=== PATIENT | female | born 1965 | race Caucasian/White ===

== ENCOUNTER 2020-03-19 | Outpatient (REF) | payer MEDICAID, SELFPAY ==
[2020-03-20 11:03] LABS: Glucose Urine UA NEG (NEG); Leukocyte Esterase Urine NEG (NEG); Nitrite Urine NEG (NEG); Specific Gravity - Urine <= 1.005 (1.005-1.025); Urine Blood TRACE (NEG); Urine Ketones NEG (NEG); Urine Protein NEG (NEG-TRACE)
[2020-03-20 11:05] LABS: Appearance Urine CLEAR; Color Urine YELLOW
[2020-03-20 11:27] LABS: Bacteria Urine TRACE /LPF; RBC Urine 0-2 /HPF (0); Squamous Epithelial Cell Urine TRACE /LPF; WBC Urine 0-2 /HPF (0-4)
== END 2020-03-19 00:01 | disposition home or self-care (01) ==
LOC: HO.LNP
PROVIDERS: Visit Provider Hospitalist
DX: Z00.00 Encounter for general adult medical examination without abnormal findings (principal); Z13.9 Encounter for screening, unspecified
CPT/HCPCS: 81001; 81003

== ENCOUNTER 2020-04-01 10:37 | Outpatient (REF) | payer OTHER, SELFPAY ==
[2020-04-01 13:32] LABS: Hematocrit 46.8 % (37-47); Hemoglobin 14.5 g/dl (12.0-16.0); Mean Corpuscular Hemoglobin 27.5 pg (27.0-33.0); Mean Corpuscular Volume 88.8 fL (80-98); Mean Platelet Volume 10.5 fL (9.4-12.3); Platelet Count 337 X10*3/uL (160-400); Red Blood Count 5.27 X10*6/uL (4.20-5.50); Red Cell Distribution Width 15.8 % (11.0-16.0); White Blood Count 11.4 X10*3/uL (4.8-10.8)
[2020-04-01 14:03] LABS: Alanine Aminotransferase 9 U/L (0-31); Albumin Level 4.1 g/dL (3.5-5.0); Alkaline Phosphatase 147 U/L (39-117); Anion Gap 12 (12-20); Aspartate Amino Transferase 10 U/L (5-31); Bilirubin Direct < 0.2 mg/dL (0.0-0.5); Bilirubin Total 0.2 mg/dL (0.0-1.0); Blood Urea Nitrogen 13 mg/dL (9-16); Calcium 9.1 mg/dL (8.4-10.2); Carbon Dioxide 30 mmol/L (22-29); Chloride 102 mmol/L (96-108); Cholesterol 219 mg/dL; Estimated Glomerular Filt Rate > 60; Glucose Fasting 93 mg/dL (60-99); HDL Cholesterol 56 mg/dL; LDL Cholesterol Calculated 128 mg/dl; Sodium 139 mmol/L (135-145); Triglycerides 177 mg/dL
== END 2020-04-01 10:38 | disposition home or self-care (01) ==
LOC: HO.WFDLDS 10:37
PROVIDERS: Visit Provider Hospitalist
DX: Z00.00 Encounter for general adult medical examination without abnormal findings (principal)
CPT/HCPCS: 36415; 80048; 80061; 80076; 84443; 85027

== ENCOUNTER 2021-04-22 09:16 | Outpatient (REF) | payer OTHER, SELFPAY ==
[2021-04-22 11:28] LABS: MANUAL DIFF FLAG NO
[2021-04-22 11:40] LABS: Basophils Percent Auto 0.3 % (0-2); Eosinophils Absolute Auto 0.1 X10*3/uL (0.0-0.4); Eosinophils Percent Auto 0.6 % (0-4); Hematocrit 48.3 % (37.0-47.0); Hemoglobin 15.3 g/dl (12.0-16.0); Imm Gran Abs Auto 0.03 X10*3/uL (0.00-0.03); Imm Gran Pct Auto 0.3 % (0.0-0.4); Lymphocytes Absolute Auto 1.8 X10*3/uL (1.2-4.9); Lymphocytes Percent Auto 20.1 % (20-40); Mean Corpuscular HGB Conc 31.7 g/dl (31.0-35.0); Mean Corpuscular Hemoglobin 28.4 pg (27.0-33.0); Mean Corpuscular Volume 89.6 fL (80.0-98.0); Mean Platelet Volume 10.4 fL (9.4-12.3); Monocytes Absolute Auto 0.5 X10*3/uL (0.1-1.2); Monocytes Percent Auto 5.6 % (2-11); Neutrophils Absolute Auto 6.6 x10*3/uL (2.0-8.3); Neutrophils Percent Auto 73.1 % (45-73); Platelet Count 320 X10*3/uL (160-400); Red Blood Count 5.39 X10*6/uL (4.20-5.50); White Blood Count 9.1 X10*3/uL (4.8-10.8)
[2021-04-22 12:08] LABS: Alanine Aminotransferase 10 U/L (0-31); Albumin Level 4.1 g/dL (3.5-5.0); Alkaline Phosphatase 143 U/L (39-117); Anion Gap 12 (12-20); Aspartate Amino Transferase 12 U/L (5-31); Bilirubin Total 0.2 mg/dL (0.0-1.0); Blood Urea Nitrogen 13 mg/dL (9-16); Calcium 9.4 mg/dL (8.4-10.2); Carbon Dioxide 28 mmol/L (22-29); Chloride 104 mmol/L (96-108); Cholesterol 234 mg/dL; Estimated Glomerular Filt Rate > 60; Glucose Fasting 91 mg/dL (60-99); HDL Cholesterol 58 mg/dL; LDL Cholesterol Calculated 154 mg/dl; Potassium 4.9 mmol/L (3.3-5.1); Sodium 139 mmol/L (135-145); Total Protein 7.2 g/dL (6.5-8.0); Triglycerides 111 mg/dL
[2021-04-22 12:30] LABS: TSH reflex Free T4 0.44 uIU/mL (0.32-4.0)
== END 2021-04-22 09:17 | disposition home or self-care (01) ==
LOC: HO.WFDLDS 09:16
PROVIDERS: Visit Provider Hospitalist
DX: Z00.01 Encounter for general adult medical examination with abnormal findings (principal)
CPT/HCPCS: 36415; 80053; 80061; 84443; 85025

== ENCOUNTER 2021-06-23 10:09 | Outpatient (REF) | payer OTHER, SELFPAY ==
[2021-06-23 13:48] LABS: Hematocrit 47.1 % (37.0-47.0); Hemoglobin 14.6 g/dl (12.0-16.0); Mean Corpuscular Hemoglobin 27.7 pg (27.0-33.0); Mean Corpuscular Volume 89.4 fL (80.0-98.0); Mean Platelet Volume 10.9 fL (9.4-12.3); Platelet Count 297 X10*3/uL (160-400); Red Blood Count 5.27 X10*6/uL (4.20-5.50); Red Cell Distribution Width 15.7 % (11.0-16.0); White Blood Count 8.6 X10*3/uL (4.8-10.8)
[2021-06-23 14:01] LABS: Alanine Aminotransferase 9 U/L (0-31); Albumin Level 4.1 g/dL (3.5-5.0); Alkaline Phosphatase 124 U/L (39-117); Anion Gap 12 (12-20); Aspartate Amino Transferase 11 U/L (5-31); Bilirubin Total 0.3 mg/dL (0.0-1.0); Blood Urea Nitrogen 14 mg/dL (9-16); Calcium 9.4 mg/dL (8.4-10.2); Carbon Dioxide 28 mmol/L (22-29); Chloride 106 mmol/L (96-108); Cholesterol 246 mg/dL; Estimated Glomerular Filt Rate > 60; Glucose Fasting 95 mg/dL (60-99); HDL Cholesterol 52 mg/dL; LDL Cholesterol Calculated 176 mg/dl; Sodium 141 mmol/L (135-145); Total Protein 7.2 g/dL (6.5-8.0); Triglycerides 94 mg/dL
[2021-06-23 14:22] LABS: TSH reflex Free T4 0.46 uIU/mL (0.32-4.0)
== END 2021-06-23 10:10 | disposition home or self-care (01) ==
LOC: HO.WFDLDS 10:09
PROVIDERS: Visit Provider Hospitalist
DX: Z00.01 Encounter for general adult medical examination with abnormal findings (principal)
CPT/HCPCS: 36415; 80053; 80061; 84443; 85027

== ENCOUNTER 2021-11-25 09:41 | Emergency (ER) | payer OTHER, SELFPAY ==
--- NOTE | 2021-11-25 10:01 | ED.OVERDOSE ---
HPI - Overdose General Chief Complaint: ETOH/Substance Use Stated Complaint: HEROIN USE,AMS, NARCAN GIVEN W/GOOD RESULT PER EMS Time Seen by Provider: 11/25/21 09:51 Source: patient Mode of arrival: EMS Limitations: no limitations History of Present Illness HPI Narrative: 56 yo female with hx of MS has been taking one bag of heroin a day for pain x 1 month - she snorts it. She was referred to methadone clinic but she doesn't have a car so she couldn't make it to the clinic and was fired after 3 days due to no shows. She does carry Narcan. She is interested in suboxone - patient has no SI. She was using it for pain. Patient seen stumbling and incoherent no falls EMS gave 0.4mg narcan by EMS now alert oriented embarrased and asking for water - GCS 15. MD complaint: accidental overdose Onset (ago): minute(s) (just prior to arrival ) Context: Accidental Overdose: other (uses heroin to treat her chronic pain) Treatments Prior to Arrival: narcan (0.4mg IV narcan by EMS) Related Data Previous Rx's Medication Instructions Recorded buprenorphine 8 mg-naloxone 2 mg 1 film buccal BID #5 ea 11/25/21 sublingual film (Suboxone) ondansetron 4 mg disintegrating 4 mg PO Q8H PRN nausea and 11/25/21 tablet vomiting #20 tabs Allergies Allergy/AdvReac Type Severity Reaction Status Date / Time No Known Allergies Allergy Verified 11/25/21 09:51 Review of Systems Review of Systems: Constitutional : No Fever, No Chills ENT/Mouth : No Ear Pain, No Nasal Congestion, No sore throat Eyes: No Eye Pain, No Swelling, No Redness Cardiovascular : No Chest Pain, No SOB Respiratory : No Cough, No Sputum, No Dyspnea Gastrointestinal : No Nausea, No Vomiting, No Diarrhea, No Hematochezia, No Melena Genitourinary : No Dysuria, No Urinary Frequency, No Hematuria Musculoskeletal : No Myalgias Skin : No Skin Lesions, No rash Neuro : No Weakness, No Numbness, No Paresthesias, No Dizziness, No Headache Psych : positive Anxiety, no Depression, no SI/HI Heme/Lymph: No Lymphadenopathy Endocrine : No Polyuria, No Polydipsia All other systems reviewed and are negative [facility] Past Medical History Attestation statement: The following information was validated with the patient. Medical History Multiple sclerosis Opiate use Social History Social History (Updated 11/25/21 @ 10:14 by Lona Arevalo DO) Patient Tobacco Use Status: Current everyday Tobacco user Substance Use Type: Heroin Advance Directives: No Advance Directives Information Provided: Yes Physical Exam Vital Signs: Vital Signs: Last Vital Signs Temp 98.4 F 11/25/21 10:19 Pulse 106 H 11/25/21 10:19 Resp 16 11/25/21 10:19 BP 146/96 H 11/25/21 10:19 Pulse Ox 96 11/25/21 10:19 O2 Del Method 11/25/21 10:19 BMI result Body Mass Index 28.3 Appearance: Alert. Oriented X3. No acute distress. Anxious asking for water Eyes: Pupils equal, round and reactive to light. ENT: Pharynx normal. Neck: Normal inspection. Neck supple. CVS: tachycardic heart rate and rhythm. Pulses normal. Respiratory: No respiratory distress. Breath sounds normal. Abdomen: Soft and non-tender. Skin: Skin warm and dry. Normal skin color. Normal skin turgor. Extremities: No lower extremity edema. Neuro: Oriented X 3. No motor deficit. No sensory deficit. Course Course Course Narrative: stable for DC GCS 15 no overdose here - suboxone induction at home long discussion with addiction team on how to do it stable for DC MDM - Overdose MDM Narrative Medical decision making narrative: 56 yo female with hx of MS here with c/o accidental heroin overdose - responded to narcan will give narcan and offer SUDE evaluation and suboxone referral. Discharge Plan Discharge Clinical Impression: Accidental heroin overdose Qualifiers: Encounter type: initial encounter Qualified Code(s): T40.1X1A - Poisoning by heroin, accidental (unintentional), initial encounter Patient Disposition: Home, Self-Care Instructions: Buprenorphine/Naloxone (Into the mouth), Adult Overdose (ED), Narcotic Use Disorder (ED) Additional Instructions: return to ED for any worsening symptoms or concerns carry narcan with you at all times follow instructions on how to start suboxone please go to [facility] care clinic on Tuesday Prescriptions: New ondansetron 4 mg tablet,disintegrating 4 mg PO Q8H PRN (Reason: nausea and vomiting) Qty: 20 0RF buprenorphine-naloxone [Suboxone] 8-2 mg film 1 film buccal BID Qty: 5 0RF
[2021-11-25 10:19] VITALS: BP 146/96; BP 151/81; PULSE 106; PULSE 139; RESP 16; TEMP 36.9; O2SAT 96; BMI 28.3
--- NOTE | 2021-11-25 11:46 | HO.SUDE ---
This ticket writer met w/ pt. Pt alert and oriented. Pt states heroin use 1 bag IN daily for past few months, reports was on Methadone 110mg daily for several months, via clinic in [place], missed 3 days of MTD dose and was discharged from their program several months ago. Pt reports no other substance use history and no history of inpatient substance use treatment. Pt states was brought in today by ambulance after using 1 bag heroin IN, pt states felt really out of it and over sedated before being picked up by ambulance, pt states does not believe she overdosed. Pt states this is the first time overdosed/over sedated on heroin. Pt reports has been using heroin daily to control pain due to MS diagnosis, pt states is prescribed Gabapentin and Baclofen for MS, but its not controlling the pain. This ticket writer offered detox, pt declined at this time. This ticket writer and pt discussed Suboxone at home standard induction and reviewed withdrawal symptoms. Opportunity for questions, pt verbalized understanding. Pt given bus passes for appt Tuesday11/27/21 at 11am at [facility] for MAT Intake. Harm reduction reviewed. Discussed plan w/ Provider, Provider to send 5 films. Pt expressed understanding and agreement w/ plan of care.
== END 2021-11-25 12:13 | disposition home or self-care (01) ==
PROVIDERS: Emergency Provider Emergency Medicine; PCP Hospitalist
DX: T40.1X1A Poisoning by heroin, accidental (unintentional), initial encounter (principal); Y92.9 Unspecified place or not applicable; F11.19 Opioid abuse with unspecified opioid-induced disorder; Z71.51 Drug abuse counseling and surveillance of drug abuser
CPT/HCPCS: 99282; 99283